=== PATIENT | female | born 1970 | race Hispanic/Latino ===

== ENCOUNTER 2017-05-23 17:26 | Emergency (ER) | payer MEDICAID ==
[2017-05-23 17:28] VITALS: BMI 26.4
[2017-05-23 18:07] VITALS: PULSE 93; RESP 16; TEMP 98.1; O2SAT 96
[2017-05-23 19:13] VITALS: BP 125/78
--- NOTE | 2017-05-23 19:27 | ED PDOC ---
Arrival/HPI - General Chief Complaint: Breast Problem Time Seen by Provider: 05/23/17 18:31 Historian: Patient - History of Present Illness Narrative History of Present Illness (Text): 05/23/17 19:23 Patient with past medical history of asthma and COPD, complains of a painful mass of gradually increasing size of the right breast, palpable under the nipple. Otherwise: (-) foreign body, (-) fever, (-) chills, (-) recent antibiotic use. Patient also denies redness, swelling, nipple discharge, skin discolorations of the breast, chest pain, shortness of breath. patient states that she had an abscess to the right breast last year, she was admitted to this hospital, received IV antibiotics and her symptoms resolved. JOVITA Miramontes Past Medical History - Provider Review Nursing Documentation Reviewed: Yes - Infectious Disease Hx of Infectious Diseases: None - Tetanus Immunization Tetanus Immunization: Up to Date - Past Medical History Past Medical History: No Previous - Cardiac Hx Cardiac Disorders: No Hx Hypertension: No - Pulmonary Hx Respiratory Disorders: No Hx Tuberculosis: No - Neurological Hx Neurological Disorder: No HX Cerebrovascular Accident: No Hx Seizures: No - HEENT Hx HEENT Disorder: No Hx Blind: No Hx Cataracts: No Hx Deafness: No Hx Difficulty Chewing: No Hx Epistaxis: No Hx Glaucoma: No Hx Macular Degeneration: No - Renal Hx Renal Disorder: No Hx Dialysis: No Hx Kidney Stones: No Hx Neurogenic Bladder: No Hx Pyelonephritis: No Hx Renal Cancer: No Hx Renal Failure: No - Endocrine/Metabolic Hx Endocrine Disorders: No Hx Adrenal Cancer: No Hx Diabetes Insipidus: No Hx Diabetes Mellitus Type 1: No Hx Diabetes Mellitus Type 2: No Hx Hyperthyroidism: No Hx Hypothyroidism: No Hx Systemic Lupus Erythematosus: No - Hematological/Oncological Hx Blood Disorders: No Hx Cancer: No - Integumentary Hx Dermatological Disorder: No Hx Basal Cell Carcinoma: No Hx Eczema: No Hx Melanoma: No Hx Psoriasis: No Hx Squamous Cell Carcinoma: No - Musculoskeletal/Rheumatological Hx Musculoskeletal Disorders: Yes Hx Arthritis: No Hx Back Pain: No Hx Degenerative Joint Disease: No Hx Falls: No Hx Fractures: No Hx Gout: No Hx Herniated Disk: Yes Hx Myasthenia Gravis: No Hx Osteoarthritis: No Hx Osteomyelitis: No Hx Osteoporosis: No Hx Rhabdomyolysis: No Hx Spinal Stenosis: No Hx Unsteady Gait: No - Gastrointestinal Hx Gastrointestinal Disorders: No Hx Colostomy: No Hx Crohn's Disease: No Hx Diverticulitis: No Hx Gall Bladder Disease: No Hx Gastroesophageal Reflux: No Hx Ileostomy: No Hx Liver Failure: No Hx Pancreatitis: No HX Swallowing Problems: No - Genitourinary/Gynecological Hx Sexually Transmitted Diseases: No - Psychiatric Hx Psychophysiologic Disorder: Yes Hx Anxiety: Yes Hx Bipolar Disorder: Yes Hx Depression: Yes Hx Physical Abuse: No Hx Substance Use: No - Past Surgical History Past Surgical History: No Previous - Surgical History Hx Amputation: No Hx Appendectomy: No Hx Cardiac Catheterization: No Hx Cholecystectomy: No Hx Coronary Stent: No Hx Gastric Bypass Surgery: No Hx Hysterectomy: No Hx Joint Replacement: No Hx Kidney Transplant: No Hx Liver Transplant: No Hx Mastectomy: No Hx Musculoskeletal Surgery: No Hx Open Heart Surgery: No Hx Orthopedic Surgery: No Hx Splenectomy: No Hx Valve Replacement: No - Anesthesia Hx Anesthesia: No Hx Anesthesia Reactions: No Hx Malignant Hyperthermia: No - Suicidal Assessment Feels Threatened In Home Enviroment: No Family/Social History - Physician Review Nursing Documentation Reviewed: Yes Family/Social History: No Known Family HX Smoking Status: Heavy Smoker > 10 Cigarettes Daily Hx Alcohol Use: No Hx Substance Use: No Hx Substance Use Treatment: Yes (methodone) Allergies/Home Meds Allergies/Adverse Reactions: Allergies No Known Allergies Allergy (Verified 04/22/16 19:51) Home Medications: Home Meds Medication Instructions Recorded Confirmed QUEtiapine [SEROquel] 150 mg PO BID 08/13/14 05/23/17 clonazePAM [Klonopin] 0.5 mg PO BID 08/13/14 05/23/17 oxyCODONE [oxyCODONE Immediate 7.5 mg PO BID 05/23/17 05/23/17 Release Tab] Review of Systems - Review of Systems Constitutional: Normal. absent: Fatigue, Weight Change, Fevers Respiratory: Normal. absent: SOB, Cough, Sputum Cardiovascular: Normal. absent: Chest Pain, Palpitations, Edema Skin: Normal, Abscess. absent: Rash, Pruritis, Skin Lesions Physical Exam Vital Signs Reviewed: Yes Vital Signs Temp Pulse Resp BP Pulse Ox 05/23/17 19:13 125/78 05/23/17 17:55 98.1 F 93 H 16 96 Temperature: Afebrile Blood Pressure: Normal Pulse: Regular Respiratory Rate: Normal Appearance: Positive for: Well-Appearing, Non-Toxic, Comfortable Pain Distress: None Mental Status: Positive for: Alert and Oriented X 3 - Systems Exam Head: Present: Atraumatic, Normocephalic Pupils: Present: PERRL Extroacular Muscles: Present: EOMI Mouth: Present: Moist Mucous Membranes Neck: Present: Normal Range of Motion. No: MIDLINE TENDERNESS, Paraspinal Tenderness Respiratory/Chest: Present: Clear to Auscultation, Good Air Exchange. No: Respiratory Distress, Wheezes, Rhonchi Cardiovascular: Present: Regular Rate and Rhythm, Normal S1, S2. No: Murmurs Abdomen: No: Tenderness, Distention, Rebound, Guarding Breast/Axillary: Present: Other (+tender abscess palpable under the R nipple with noted mild surrounding erythema ro the areola, no nipple d/c, no fluctuance ), Symmetrical. No: Axillary Lymphad, Discoloration, Fluctuance, Nipple Discharge, Swelling Back: Present: Normal Inspection. No: Midline Tenderness, Paraspinal Tenderness Upper Extremity: Present: Normal Inspection, Normal ROM Lower Extremity: Present: Normal Inspection, Normal ROM Neurological: Present: GCS=15, CN II-XII Intact, Motor Func Grossly Intact, Normal Sensory Function Skin: Present: Warm, Dry, Normal Color. No: Rashes Medical Decision Making ED Course and Treatment: 05/23/17 19:29 47 yo F with past medical history of asthma and COPD, complains of a painful mass of gradually increasing size of the right breast, palpable under the nipple. Differential diagnosis : likely breast abscess, consider cellulitis Plan: - Clindamycin 300 mg PO - Toradol 60 mg IM Patient advised of likely diagnosis of breast abscess, advised to take medication as prescribed, instructed to follow up with primary care physician and referral physician provided in 1-2 days without fail. Return to the emergency room at any time for any new or worsening symptoms, especially if increased redness, swelling, fever, and chills develop. Patient states she fully agrees with and understands discharge instructions. States that she agrees with the plan and disposition. Verbalized and repeated discharge instructions and plan. I have given the patient opportunity to ask any additional questions. - Medication Orders Current Medication Orders: Discontinued Medications Clindamycin HCl (Cleocin) 300 mg PO STAT STA PRN Reason: Protocol Stop: 05/23/17 19:06 Ketorolac Tromethamine (Toradol) 60 mg IM STAT STA Stop: 05/23/17 19:05 - PA / TELEPATHIST / Resident Statement / has reviewed & agrees with the documentation as recorded. Disposition/Present on Arrival - Present on Arrival Any Indicators Present on Arrival: No History of DVT/PE: No History of Uncontrolled Diabetes: No Urinary Catheter: No History of Decub. Ulcer: No History Surgical Site Infection Following: None - Disposition Have Diagnosis and Disposition been Completed?: Yes Diagnosis: Breast abscess Disposition: HOME/ ROUTINE Disposition Time: 19:33 Patient Plan: Discharge Patient Problems: Current Active Problems Problem Status Onset Breast abscess Acute Condition: STABLE Discharge Instructions (ExitCare): Abscess (ED) Print Language: FILIPINO Additional Instructions: Thank you for letting us take care of you today. You were treated for right breast abscess. The emergency medical care you received today was directed at your acute symptoms. If you were prescribed any medication, please fill it and take as directed. It may take several days for your symptoms to resolve. Return to the Emergency Department if your symptoms worsen, do not improve, or if you have any other problems. Please contact your doctor in 2 days for re-evaluation and follow up / or call one of the physicians/clinics you have been referred to that are listed on the Patient Visit Information form that is included in your discharge packet. Bring any paperwork you were given at discharge with you along with any medications you are taking to your follow up visit. Our treatment cannot replace ongoing medical care by a primary care provider (PCP) outside of the emergency department. Thank you for allowing the [facility] team to be part of your care today. Prescriptions: Clindamycin [Cleocin] 300 mg PO TID #30 cap Naproxen 500 mg PO BID #30 tab Referrals: Kay Miramontes MD [Primary Care Provider] - Follow up with primary Christie Hood MD [Staff Provider] - Follow up with primary Forms: [employer] (Bengali), WORK NOTE
== END 2017-05-23 19:56 | disposition home or self-care (01) ==
LOC: ED 17:26
DX: N61.1 Abscess of the breast and nipple (principal)
CPT/HCPCS: 96372; 99283; J1885

== ENCOUNTER 2017-09-16 16:07 | Emergency (ER) | payer MEDICAID ==
[2017-09-16 16:09] VITALS: BMI 23.1
[2017-09-16] MEDS ORDERED: Alum-Mag Hydrox-Simethicone Susp (30 mL) PO STA (17:13)
--- NOTE | 2017-09-16 17:17 | ED PDOC ---
Arrival/HPI - General Chief Complaint: Chest Pain Time Seen by Provider: 09/16/17 17:03 - History of Present Illness Narrative History of Present Illness (Text): 09/16/17 17:16 Patient is a 47 year old F presenting with pleuritic L sided chest pain x 1 day. Reports that the pain is also worsened by movement. Denies fever, chills , cough, uri, nausea/vomiting. She denies shortness of breath but reports that it is difficult to take a deep breath secondary to pain. Reports taking oxycodone prior to arrival with some relief. She reports tobacco use. Denies hx of diabetes or htn. Denies cocaine use. PMD: Dr. Banda Past Medical History - Infectious Disease Hx of Infectious Diseases: None - Tetanus Immunization Tetanus Immunization: Up to Date - Past Medical History Past Medical History: No Previous - Cardiac Hx Angina: No Hx Cardiac Arrhythmia: No Hx Circulatory Problems: No Hx Congestive Heart Failure: No Hx Heart Murmur: No Hx Heart Transplant: No Hx Hypertension: No Hx Internal Defibrillator: No Hx Mitral Valve Prolapse: No Hx Pacemaker: No Hx Peripheral Edema: No Hx Peripheral Vascular Disease: No - Pulmonary Hx Respiratory Disorders: No Hx Chronic Obstructive Pulmonary Disease (COPD): Yes - Neurological Hx Neurological Disorder: No - HEENT Hx HEENT Disorder: No - Renal Hx Renal Disorder: No - Endocrine/Metabolic Hx Endocrine Disorders: No - Hematological/Oncological Hx Blood Disorders: No - Integumentary Hx Dermatological Disorder: No Other/Comment: pt claims abcess on rt breast - Musculoskeletal/Rheumatological Hx Musculoskeletal Disorders: No Hx Arthritis: No Hx Back Pain: No Hx Degenerative Joint Disease: No Hx Falls: No Hx Fractures: No Hx Gout: No Hx Herniated Disk: No Hx Myasthenia Gravis: No Hx Osteoarthritis: No Hx Osteomyelitis: No Hx Osteoporosis: No Hx Rhabdomyolysis: No Hx Spinal Stenosis: No Hx Unsteady Gait: No - Gastrointestinal Hx Gastrointestinal Disorders: No - Genitourinary/Gynecological Hx Genitourinary Disorders: No - Psychiatric Hx Bipolar Disorder: Yes Hx Substance Use: No Other/Comment: former drug user - Past Surgical History Past Surgical History: No Previous - Surgical History Hx Amputation: No Hx Appendectomy: No Hx Cardiac Catheterization: No Hx Cholecystectomy: No Hx Coronary Stent: No Hx Gastric Bypass Surgery: No Hx Hysterectomy: No Hx Joint Replacement: No Hx Kidney Transplant: No Hx Liver Transplant: No Hx Mastectomy: No Hx Musculoskeletal Surgery: No Hx Open Heart Surgery: No Hx Orthopedic Surgery: No Hx Splenectomy: No Hx Valve Replacement: No - Anesthesia Hx Anesthesia: No - Suicidal Assessment Feels Threatened In Home Enviroment: No Family/Social History Family/Social History: No Known Family HX Smoking Status: Light Smoker < 10 Cigarettes Daily Hx Alcohol Use: No Hx Substance Use: No Hx Substance Use Treatment: Yes (methodone) Allergies/Home Meds Allergies/Adverse Reactions: Allergies No Known Allergies Allergy (Verified 09/16/17 16:44) Home Medications: Home Meds Medication Instructions Recorded Confirmed QUEtiapine [SEROquel] 150 mg PO BID 08/13/14 09/16/17 clonazePAM [Klonopin] 0.5 mg PO BID 08/13/14 09/16/17 oxyCODONE [oxyCODONE Immediate 7.5 mg PO BID 05/23/17 09/16/17 Release Tab] Albuterol HFA [Ventolin HFA 90 2 puff IH PRN PRN 06/06/17 09/16/17 mcg/actuation (8 g)] Review of Systems - Review of Systems Constitutional: absent: Fatigue, Weight Change Respiratory: absent: SOB, Cough, Sputum, Wheezing Cardiovascular: Chest Pain (pleuritic). absent: Palpitations, Edema, Calf Pain , MORGAN Gastrointestinal: absent: Abdominal Pain, Constipation, Diarrhea, Nausea, Vomiting, Food Intolerance Neurological: absent: Headache, Dizziness, Focal Weakness, Gait Changes, Speech Changes, Facial Droop, Disequilibrium Physical Exam Vital Signs Temp Pulse Resp BP Pulse Ox 09/16/17 16:38 98 F 96 H 18 103/68 97 Temperature: Afebrile Blood Pressure: Normal Pulse: Regular Respiratory Rate: Normal Appearance: Positive for: Well-Appearing, Non-Toxic, Comfortable Pain Distress: None Mental Status: Positive for: Alert and Oriented X 3 - Systems Exam Head: Present: Atraumatic, Normocephalic Pupils: Present: PERRL Extroacular Muscles: Present: EOMI Conjunctiva: Present: Normal Mouth: Present: Moist Mucous Membranes Neck: Present: Normal Range of Motion Respiratory/Chest: Present: Clear to Auscultation, Good Air Exchange. No: Respiratory Distress, Accessory Muscle Use Cardiovascular: Present: Regular Rate and Rhythm, Normal S1, S2. No: Murmurs Abdomen: No: Tenderness, Distention Upper Extremity: Present: Normal Inspection Lower Extremity: Present: Normal Inspection. No: Edema Neurological: Present: GCS=15, CN II-XII Intact Skin: Present: Warm, Dry. No: Rashes Psychiatric: Present: Alert, Oriented x 3 Medical Decision Making ED Course and Treatment: 09/16/17 17:17 EKG shows NSR at 91bpm with normal intervals and no ST changes. Cxray negative. Trop and bnp negative. Patient's only cardiac risk factor is tobacco use. She has normal ekg and pleuritic chest pain for >24 hours. On reevaluation she is sleeping comfortably. Will sign out to Dr. Pastrana to follow-up d-dimer and reevaluate - Lab Interpretations Lab Results: 09/16/17 17:00 09/16/17 17:58 Lab Results 09/16/17 18:01: Urine Color Yellow, Urine Appearance Clear, Urine pH 7.5, Ur Specific [place] 1.010, Urine Protein Negative, Urine Glucose (UA) Negative, Urine Ketones Negative, Urine Blood Trace-intact H, Urine Nitrate Negative, Urine Bilirubin Negative, Urine Urobilinogen 0.2, Ur Leukocyte Esterase Negative , Urine RBC 1 - 3, Urine WBC 0 - 2, Ur Epithelial Cells 0 - 2, Urine Bacteria Small 09/16/17 17:58: Sodium 138, Potassium 4.1, Chloride 100, Carbon Dioxide 33, Anion Gap 8 L, BUN 13, Creatinine 0.8, Est GFR ( Amer) > 60, Est GFR (Non -Af Amer) > 60, Random Glucose 98, Calcium 8.9, Magnesium 2.1, Total Bilirubin 0.5, AST 27, ALT 30, Alkaline Phosphatase 65, Lactate Dehydrogenase 402, Total Creatine Kinase 65, Troponin I < 0.01, NT-Pro-B Natriuret Pep 15.1, Total Protein 7.1, Albumin 4.2, Globulin 3.0, Albumin/Globulin Ratio 1.4 09/16/17 17:00: PT 10.2, INR 0.94, APTT 29.4, D-Dimer, Quantitative Pending 09/16/17 17:00: WBC 7.2, RBC 4.15, Hgb 13.1, Hct 39.3, MCV 94.7, MCH 31.6, MCHC 33.3, RDW 13.3, Plt Count 233, MPV 9.5, Gran % 60.5, Lymph % (Auto) 28.8, [place] % (Auto) 7.6 H, Eos % (Auto) 2.8, Baso % (Auto) 0.3, Gran # 4.36, Lymph # 2.1, [place] # 0.6, Eos # 0.2, Baso # 0.02 - RAD Interpretation Radiology Orders: 09/16/17 17:06 CHEST PORTABLE [RAD] Stat - Medication Orders Current Medication Orders: Discontinued Medications Al Hydrox/Mg Hydrox/Simethicone (Maalox Plus 30 Ml) 30 ml PO STAT STA Stop: 09/16/17 17:14 Last Admin: 09/16/17 17:55 Dose: 30 ml Aspirin (Aspirin) 325 mg PO STAT STA Stop: 09/16/17 17:07 Last Admin: 09/16/17 17:55 Dose: 325 mg Famotidine (Pepcid) 20 mg IVP STAT STA Stop: 09/16/17 17:14 Last Admin: 09/16/17 17:55 Dose: 20 mg IVP Administration Document 09/16/17 17:55 (Rec: 09/16/17 17:55 [id number]) Charges for Administration # of IVP Administrations 1 Disposition/Present on Arrival - Present on Arrival Any Indicators Present on Arrival: No History of DVT/PE: No History of Uncontrolled Diabetes: No Urinary Catheter: No History of Decub. Ulcer: No History Surgical Site Infection Following: None - Disposition Have Diagnosis and Disposition been Completed?: Yes Diagnosis: Pleuritic chest pain Disposition Time: 19:00 Patient Problems: Current Active Problems Problem Status Onset Pleuritic chest pain Acute Condition: GOOD Discharge Instructions (ExitCare): Chest Pain (ED) Referrals: Gideon Aranda [Primary Care Provider] - Follow up with primary Forms: [employer] (Stateless)
[2017-09-16 17:35] LABS: BASO # 0.02 K/mm3 (0.0-2.0); BASO % 0.3 % (0.0-3.0); EOS # 0.2 (0.0-0.7); EOS % 2.8 % (1.5-5.0); GRAN # 4.36 (1.4-6.5); GRAN % 60.5 % (50.0-68.0); HEMATOCRIT 39.3 % (36.0-48.0); LYMPH # 2.1 (1.2-3.4); LYMPH % 28.8 % (22.0-35.0); MEAN CELL VOLUME 94.7 fl (80.0-105.0); MEAN CORPUSCULAR HEMOGLOBIN 31.6 pg (25.0-35.0); MEAN CORPUSCULAR HGB CONC 33.3 g/dl (31.0-37.0); MEAN PLATELET VOLUME 9.5 fl (7.0-11.0); MONO # 0.6 (0.1-0.6); MONO % 7.6 % (1.0-6.0); RED CELL DISTRIBUTION WIDTH 13.3 % (11.5-14.5); WHITE BLOOD COUNT 7.2 10^3/ul (4.5-11.0)
[2017-09-16 18:03] LABS: INR 0.94 (0.93-1.08); PARTIAL THROMBOPLASTIN TIME 29.4 Seconds (25.1-36.5)
[2017-09-16 18:15] LABS: PH,URINE 7.5 (4.7-8.0); URINE BILIRUBIN NEGATIVE (NEGATIVE); URINE BLOOD TRACE-INTACT (NEGATIVE); URINE GLUCOSE (UA) NEGATIVE (NEGATIVE); URINE KETONE NEGATIVE (NEGATIVE); URINE LEUKOCYTE ESTERASE NEGATIVE Leu/uL (NEGATIVE); URINE PROTEIN NEGATIVE mg/dL (<30 mg/dL); URINE UROBILINOGEN 0.2 E.U./dL (<1 E.U./dL)
[2017-09-16 18:26] LABS: URINE APPEARANCE CLEAR (CLEAR); URINE COLOR YELLOW (YELLOW)
[2017-09-16 18:36] LABS: ALB/GLOB RATIO 1.4 (1.1-1.8); ALKALINE PHOSPHATASE 65 U/L (38-126); ALT/SGPT 30 U/L (7-56); AST/SGOT 27 U/L (14-36); BILIRUBIN,TOTAL 0.5 mg/dL (0.2-1.3); BLOOD UREA NITROGEN 13 mg/dL (7-21); CALCIUM 8.9 mg/dL (8.4-10.5); CARBON DIOXIDE 33 mmol/L (21-33); CHLORIDE 100 mmol/L (98-107); GFR AFRICAN-AMERICAN > 60; GLUCOSE,RANDOM 98 mg/dL (70-110); MAGNESIUM 2.1 mg/dL (1.7-2.2); POTASSIUM 4.1 mmol/L (3.6-5.0); SODIUM 138 mmol/L (132-148); TOTAL PROTEIN 7.1 g/dL (5.8-8.3)
[2017-09-16 18:47] LABS: TROPONIN I < 0.01 ng/mL
[2017-09-16 18:52] LABS: URINE BACTERIA SMALL (NEG); URINE EPITHELIAL CELLS 0 - 2 /hpf (0-5); URINE WBC 0 - 2 /hpf (0-6)
--- NOTE | 2017-09-16 19:28 | ED PDOC ---
Physical Exam Vital Signs Temp Pulse Resp BP Pulse Ox 09/16/17 20:00 85 17 107/70 100 09/16/17 18:09 65 18 118/67 99 09/16/17 16:38 98 F 96 H 18 103/68 97 Temperature: Afebrile Blood Pressure: Normal Pulse: Regular Respiratory Rate: Normal Appearance: Positive for: Well-Appearing, Non-Toxic, Comfortable Pain Distress: None Mental Status: Positive for: Alert and Oriented X 3 - Systems Exam Respiratory/Chest: Present: Clear to Auscultation, Good Air Exchange, Tender to Palpation. No: Respiratory Distress, Accessory Muscle Use Cardiovascular: Present: Regular Rate and Rhythm, Normal S1, S2. No: Murmurs Abdomen: Present: Normal Bowel Sounds. No: Tenderness, Distention, Peritoneal Signs Medical Decision Making ED Course and Treatment: 09/16/17 19:03 Patient transferred to [place] by Dr. Richardson.Case d/w her in full. Currently awaitng D-Dimer findings prior to final disposition. 09/16/17 21:10 Pt. reexamined complaining of pain to chest/upper abdomen.Hurts when palpating her chest and upper abdomen.D-Dimer result was negative.NSAID ordered.CT chest/ abdomen ordered 09/16/17 22:49 CT results noted.Pt. feeling better.Will d/c with rx..To follow up with PMD. - Lab Interpretations Lab Results: 09/16/17 17:00 09/16/17 17:58 Lab Results 09/16/17 19:14: D-Dimer, Quantitative 201 09/16/17 18:01: Urine Color Yellow, Urine Appearance Clear, Urine pH 7.5, Ur Specific [place] 1.010, Urine Protein Negative, Urine Glucose (UA) Negative, Urine Ketones Negative, Urine Blood Trace-intact H, Urine Nitrate Negative, Urine Bilirubin Negative, Urine Urobilinogen 0.2, Ur Leukocyte Esterase Negative , Urine RBC 1 - 3, Urine WBC 0 - 2, Ur Epithelial Cells 0 - 2, Urine Bacteria Small 09/16/17 17:58: Sodium 138, Potassium 4.1, Chloride 100, Carbon Dioxide 33, Anion Gap 8 L, BUN 13, Creatinine 0.8, Est GFR ( Amer) > 60, Est GFR (Non -Af Amer) > 60, Random Glucose 98, Calcium 8.9, Magnesium 2.1, Total Bilirubin 0.5, AST 27, ALT 30, Alkaline Phosphatase 65, Lactate Dehydrogenase 402, Total Creatine Kinase 65, Troponin I < 0.01, NT-Pro-B Natriuret Pep 15.1, Total Protein 7.1, Albumin 4.2, Globulin 3.0, Albumin/Globulin Ratio 1.4 09/16/17 17:00: PT 10.2, INR 0.94, APTT 29.4, D-Dimer, Quantitative 09/16/17 17:00: WBC 7.2, RBC 4.15, Hgb 13.1, Hct 39.3, MCV 94.7, MCH 31.6, MCHC 33.3, RDW 13.3, Plt Count 233, MPV 9.5, Gran % 60.5, Lymph % (Auto) 28.8, [place] % (Auto) 7.6 H, Eos % (Auto) 2.8, Baso % (Auto) 0.3, Gran # 4.36, Lymph # 2.1, [place] # 0.6, Eos # 0.2, Baso # 0.02 - RAD Interpretation Radiology Orders: 09/16/17 17:06 CHEST PORTABLE [RAD] Stat 09/16/17 21:19 CHEST,ABD,PEL W/IV CONT ONLY [CT] Stat - Medication Orders Current Medication Orders: Discontinued Medications Al Hydrox/Mg Hydrox/Simethicone (Maalox Plus 30 Ml) 30 ml PO STAT STA Stop: 09/16/17 17:14 Last Admin: 09/16/17 17:55 Dose: 30 ml Aspirin (Aspirin) 325 mg PO STAT STA Stop: 09/16/17 17:07 Last Admin: 09/16/17 17:55 Dose: 325 mg Famotidine (Pepcid) 20 mg IVP STAT STA Stop: 09/16/17 17:14 Last Admin: 09/16/17 17:55 Dose: 20 mg IVP Administration Document 09/16/17 17:55 (Rec: 09/16/17 17:55 [id number]) Charges for Administration # of IVP Administrations 1 Ketorolac Tromethamine (Toradol) 30 mg IVP ONCE ONE Stop: 09/16/17 21:22 Last Admin: 09/16/17 21:30 Dose: 30 mg MAR Pain Assessment Document 09/16/17 21:30 AB (Rec: 09/16/17 21:30 [id number] Pain Reassessment Is this a pain reassessment? Yes Sleep Is patient sleeping during reassessment? No Presence of Pain Presence of Pain Yes Pain Scale Used Pain Scale Used Numeric Location Pain Location Body Site Chest Description Description Constant Pain Behavior Guarding Aggravating Factors ADL's Alleviating Factors/Management Medication Techniques Alleviating Factors Medication IVP Administration Document 09/16/17 21:30 (Rec: 09/16/17 21:30 [id number]) Charges for Administration # of IVP Administrations 1 Disposition/Present on Arrival - Present on Arrival Any Indicators Present on Arrival: No History of DVT/PE: No History of Uncontrolled Diabetes: No Urinary Catheter: No History of Decub. Ulcer: No History Surgical Site Infection Following: None - Disposition Have Diagnosis and Disposition been Completed?: Yes Diagnosis: Pleuritic chest pain, Musculoskeletal pain Disposition: HOME/ ROUTINE Disposition Time: 22:53 Patient Plan: Discharge Condition: GOOD Discharge Instructions (ExitCare): Chest Pain (ED) Additional Instructions: Rest/no strenuous physical activity/take meds as prescribed/follow up with your doctor this week Prescriptions: Naproxen [Naprosyn] 500 mg PO BID PRN #14 tab PRN Reason: Pain Referrals: Gideon Aranda [Primary Care Provider] - Follow up with primary Forms: [employer] (U[place]ayan)
[2017-09-16 21:02] VITALS: O2SAT 100
[2017-09-16] MEDS ORDERED: Iohexol 350 MG/100 ML VIAL ONE (21:26)
--- NOTE | 2017-09-16 22:36 | CT ---
EXAM: CT Abdomen and Pelvis With Intravenous Contrast CLINICAL HISTORY: 47 years old, female; Pain; Abdominal pain; Localized; Upper; Chest pressure; Additional info: Chest/upper abdominal pain TECHNIQUE: Axial computed tomography images of the abdomen and pelvis with intravenous contrast. All CT scans at this facility use one or more dose reduction techniques, viz.: automated exposure control; ma/kV adjustment per patient size (including targeted exams where dose is matched to indication; i.e. head); or iterative reconstruction technique. Coronal and sagittal reformatted images were created and reviewed. CONTRAST: 100 mL of OMNI administered intravenously. COMPARISON: No relevant prior studies available. FINDINGS: ABDOMEN: Liver: No acute findings. Gallbladder and bile ducts: The gallbladder is decompressed. No calcified stones. No significant intra- or extrahepatic biliary ductal dilation. Pancreas: Enhances homogeneously. No ductal dilation. No discrete mass. Spleen: No acute findings. Adrenals: No acute findings. Kidneys and ureters: No acute findings. No hydronephrosis or renal calculi. No discrete solid mass. PELVIS: Bladder: No acute findings. Reproductive: No acute findings. Appendix: The appendix is of normal caliber (series 2, image 173) . ABDOMEN and PELVIS: Stomach and bowel: No obstruction. No mucosal thickening. A fat (and likely omentum) containing umbilical hernia is detected. Peritoneum: No significant fluid collection. No free air. Lymph nodes: No pathologically enlarged lymph nodes. Vasculature: Unremarkable (no aneurysmal dilatation or dissection). Bones: No acute fracture. IMPRESSION: Fat and likely omentum containing umbilical hernia. EXAM: CT Chest With Intravenous Contrast CLINICAL HISTORY: 47 years old, female; Pain; Abdominal pain; Localized; Upper; Chest pressure; Additional info: Chest/upper abdominal pain TECHNIQUE: Axial computed tomography images of the chest with intravenous contrast. All CT scans at this facility use one or more dose reduction techniques, viz.: automated exposure control; ma/kV adjustment per patient size (including targeted exams where dose is matched to indication; i.e. head); or iterative reconstruction technique. Coronal and sagittal reformatted images were created and reviewed. CONTRAST: 100 mL of OMNI administered intravenously. COMPARISON: No relevant prior studies available. FINDINGS: Lungs: No mass. No consolidation. Right basilar atelectasis. Pleural spaces: No significant effusion. No pneumothorax. Heart: No cardiomegaly. No significant pericardial effusion. Vasculature: No aortic aneurysm. No dissection. Lymph nodes: No enlarged lymph nodes. Bones: No acute fracture. IMPRESSION: Right basilar atelectasis.
[2017-09-16 23:16] VITALS: BP 110/80; PULSE 70; RESP 18; TEMP 98.7
--- NOTE | 2017-09-17 09:00 | RAD ---
HISTORY: chest pain COMPARISON: 01/18/2015 FINDINGS: LUNGS: No active pulmonary disease. PLEURA: No significant pleural effusion identified, no pneumothorax apparent. CARDIOVASCULAR: Normal. OSSEOUS STRUCTURES: No significant abnormalities. VISUALIZED UPPER ABDOMEN: Normal. OTHER FINDINGS: None. IMPRESSION: No active disease.
--- NOTE | 2017-09-17 20:06 | CARD ---
APPROVED REPORT EKG Measurement Heart [id number] <Conclusion> Normal sinus rhythm Normal ECG
== END 2017-09-16 23:16 | disposition home or self-care (01) ==
LOC: ED 16:07
DX: R07.81 Pleurodynia (principal); M79.1 Myalgia; F17.210 Nicotine dependence, cigarettes, uncomplicated
CPT/HCPCS: 71010; 71260; 74177; 80053; 81001; 82550; 83615; 83735; 83880; 84484; 85025; 85378; 85610; 85730; 93005; 96374; 96375; 99285; J1885; Q9967

== ENCOUNTER 2017-12-25 12:18 | Emergency (ER) | payer MEDICAID ==
[2017-12-25 12:26] VITALS: BMI 24.0
--- NOTE | 2017-12-25 12:32 | ED PDOC ---
Arrival/HPI - General Chief Complaint: Flu-like Symptoms Time Seen by Provider: 12/25/17 12:22 Historian: Patient - History of Present Illness Narrative History of Present Illness (Text): 12/25/17 12:29 A 47 year old female, whose past medical history includes bipolar disorder, presents to the emergency department complaining of a sore throat since yesterday. Patient reports body aches, nasal congestion, headache and non- bilious non-bloody vomiting. Patient is able to tolerate PO intake. Patient notes urinary frequency but denies any fever, chills, abdominal pain, dysuria, chest pain, shortness of breath, cough or any other complaints. PMD: Dr. Miramontes Time/Duration: Other (yesterday) Symptom Course: Unchanged Quality: Other Context: Home Past Medical History - Provider Review Nursing Documentation Reviewed: Yes - Infectious Disease Hx of Infectious Diseases: None - Tetanus Immunization Tetanus Immunization: Up to Date - Past Medical History Past Medical History: No Previous - Cardiac Hx Angina: No Hx Cardiac Arrhythmia: No Hx Circulatory Problems: No Hx Congestive Heart Failure: No Hx Heart Murmur: No Hx Heart Transplant: No Hx Hypertension: No Hx Internal Defibrillator: No Hx Mitral Valve Prolapse: No Hx Pacemaker: No Hx Peripheral Edema: No Hx Peripheral Vascular Disease: No - Pulmonary Hx Respiratory Disorders: No Hx Chronic Obstructive Pulmonary Disease (COPD): Yes - Neurological Hx Neurological Disorder: No - HEENT Hx HEENT Disorder: No - Renal Hx Renal Disorder: No - Endocrine/Metabolic Hx Endocrine Disorders: No - Hematological/Oncological Hx Blood Disorders: No - Integumentary Hx Dermatological Disorder: No Other/Comment: pt claims abcess on rt breast - Musculoskeletal/Rheumatological Hx Musculoskeletal Disorders: No Hx Arthritis: No Hx Back Pain: No Hx Degenerative Joint Disease: No Hx Falls: No Hx Fractures: No Hx Gout: No Hx Herniated Disk: No Hx Myasthenia Gravis: No Hx Osteoarthritis: No Hx Osteomyelitis: No Hx Osteoporosis: No Hx Rhabdomyolysis: No Hx Spinal Stenosis: No Hx Unsteady Gait: No - Gastrointestinal Hx Gastrointestinal Disorders: No - Genitourinary/Gynecological Hx Genitourinary Disorders: No - Psychiatric Hx Bipolar Disorder: Yes Hx Substance Use: No Other/Comment: former drug user - Past Surgical History Past Surgical History: No Previous - Surgical History Hx Amputation: No Hx Appendectomy: No Hx Cardiac Catheterization: No Hx Cholecystectomy: No Hx Coronary Stent: No Hx Gastric Bypass Surgery: No Hx Hysterectomy: No Hx Joint Replacement: No Hx Kidney Transplant: No Hx Liver Transplant: No Hx Mastectomy: No Hx Musculoskeletal Surgery: No Hx Open Heart Surgery: No Hx Orthopedic Surgery: No Hx Splenectomy: No Hx Valve Replacement: No - Anesthesia Hx Anesthesia: No - Suicidal Assessment Feels Threatened In Home Enviroment: No Family/Social History - Physician Review Nursing Documentation Reviewed: Yes Family/Social History: No Known Family HX Smoking Status: Light Smoker < 10 Cigarettes Daily Hx Alcohol Use: No Hx Substance Use: No Hx Substance Use Treatment: Yes (methodone) Allergies/Home Meds Allergies/Adverse Reactions: Allergies No Known Allergies Allergy (Verified 12/25/17 12:28) Home Medications: Home Meds Medication Instructions Recorded Confirmed QUEtiapine [SEROquel] 150 mg PO BID 08/13/14 12/25/17 clonazePAM [Klonopin] 0.5 mg PO BID 08/13/14 12/25/17 oxyCODONE [oxyCODONE Immediate 7.5 mg PO BID 05/23/17 12/25/17 Release Tab] Albuterol HFA [Ventolin HFA 90 2 puff IH PRN PRN 06/06/17 12/25/17 mcg/actuation (8 g)] Review of Systems - Physician Review All systems were reviewed & negative as marked: Yes - Review of Systems Constitutional: absent: Fevers, Night Sweats ENT: Sore Throat, Sinus Congestion Respiratory: absent: SOB, Cough Cardiovascular: absent: Chest Pain Gastrointestinal: Vomiting. absent: Abdominal Pain Genitourinary Female: Frequency. absent: Dysuria Musculoskeletal: Myalgias Neurological: Headache Physical Exam Vital Signs Reviewed: Yes Vital Signs Temp Pulse Resp BP Pulse Ox 12/25/17 16:07 86 17 112/75 98 12/25/17 15:18 98.2 F 89 17 109/65 97 12/25/17 13:40 100 F H 12/25/17 13:39 106 H 17 115/65 100 12/25/17 12:40 100.1 F H 12/25/17 12:19 100.1 F H 121 H 18 140/71 100 Temperature: Febrile Blood Pressure: Normal Pulse: Tachycardic Respiratory Rate: Normal Appearance: Positive for: Well-Appearing, Non-Toxic, Comfortable Pain Distress: None Mental Status: Positive for: Alert and Oriented X 3 - Systems Exam Head: Present: Atraumatic, Normocephalic Pupils: Present: PERRL Extroacular Muscles: Present: EOMI Conjunctiva: Present: Normal Mouth: Present: Dry Pharnyx: Present: ERYTHEMA, EXUDATE (bilaterally), TONSILS ENLARGED. No: Uvular Deviation Nose (Internal): Present: Other (Nasal congestion) Neck: Present: Normal Range of Motion, Lymphadenopathy Respiratory/Chest: Present: Clear to Auscultation, Good Air Exchange. No: Respiratory Distress, Accessory Muscle Use Cardiovascular: Present: Regular Rate and Rhythm, Normal S1, S2. No: Murmurs Abdomen: Present: Normal Bowel Sounds. No: Tenderness, Distention, Peritoneal Signs Back: Present: Normal Inspection Upper Extremity: Present: Normal Inspection. No: Cyanosis, Edema Lower Extremity: Present: Normal Inspection. No: Edema Neurological: Present: GCS=15, CN II-XII Intact, Speech Normal Skin: Present: Warm, Dry, Normal Color. No: Rashes Psychiatric: Present: Alert, Oriented x 3, Normal Insight, Normal Concentration Medical Decision Making ED Course and Treatment: 12/25/17 12:28 Impression: A 47 year old female with sore throat, body aches, congestion and headache Differential Diagnosis included but are not limited to: Pharyngitis r/o Sepsis; Dehydration Plan: -- Chest xray -- EKG -- Labs -- Blood and Urine culture -- Urinalysis -- Tylenol, Decadeon, Toradol and Lactated ringer -- Reassess and disposition Progress Notes: EKG shows sinus tachycardia at [address]-segment elevations. Interpreted by me. Report Date : 12/25/2017 13:43:14 Procedure: Chest xray Dictator : Maxime Osei MD IMPRESSION: No active disease. 12/25/17 14:02 Patient resting. Her general bodyaches have resolved. HR improving. 12/25/17 16:10 Patient AAOx3. She feels much better. Her vital signs have improved. Her aches have resolved. She is able to tolerate PO fluids. She has completed her hydration. She has some blood in her UA and has some urinary symptoms. Will treat with Macrobid. She was advised to return to the ED if symptoms worsen or any other concern. - Critical Care Critical Care Minutes: 30 minutes - Lab Interpretations Lab Results: 12/25/17 12:28 12/25/17 13:50 Lab Results 12/25/17 14:35: Influenza Typ A,B (EIA) Negative for flu a/b 12/25/17 13:50: Sodium 134, Chloride 101, Potassium 3.8, Carbon Dioxide 26, Anion Gap 11, BUN 15, Creatinine 0.7, Est GFR ( Amer) > 60, Est GFR (Non- Af Amer) > 60, Random Glucose 147 H, Calcium 8.8, Phosphorus 3.4, Magnesium 1.7 , Total Bilirubin 0.4, AST 22, ALT 29, Alkaline Phosphatase 72, Troponin I < 0.01, Total Protein 6.9, Albumin 3.9, Globulin 3.1, Albumin/Globulin Ratio 1.3 12/25/17 13:20: Urine Color Yellow, Urine Appearance Sl cloudy, Urine pH 8.0, Ur Specific [place] 1.020, Urine Protein Trace H, Urine Glucose (UA) Negative, Urine Ketones 15 H, Urine Blood Moderate H, Urine Nitrate Negative, Urine Bilirubin Negative, Urine Urobilinogen 0.2, Ur Leukocyte Esterase Negative, Urine RBC Tntc, Urine WBC 0 - 2, Ur Epithelial Cells 10 - 12, Urine Bacteria Few 12/25/17 12:28: pO2 20 L, VBG pH 7.35, VBG pCO2 55.0, VBG HCO3 30.4 H, VBG Total CO2 32.1 H, VBG O2 Sat (Calc) 45.9, VBG Base Excess 3.4 H, VBG Potassium 4.7, Sodium 136.0, Chloride 102.0, Glucose 155 H, Lactate 1.0, FiO2 21.0, Venous Blood Potassium 4.7 12/25/17 12:28: PT 12.8 H, INR 1.11 H, APTT 31.0 12/25/17 12:28: WBC 16.9 H D, RBC 4.41, Hgb 14.2, Hct 41.0, MCV 93.0, MCH 32.2, MCHC 34.6, RDW 13.8, Plt Count 227, MPV 10.6, Gran % 90.4 H, Lymph % (Auto) 5.0 L, [place] % (Auto) 4.5, Eos % (Auto) 0.0 L, Baso % (Auto) 0.1, Gran # 15.27 H, Lymph # (Auto) 0.9 L, [place] # (Auto) 0.8 H, Eos # (Auto) 0.0, Baso # (Auto) 0.02 , Neutrophils % (Manual) 90 H, Lymphocytes % (Manual) 6 L, Monocytes % (Manual) 4 I have reviewed the lab results: Yes - RAD Interpretation Radiology Orders: 12/25/17 12:28 CHEST PORTABLE [RAD] Stat - Medication Orders Current Medication Orders: Discontinued Medications Acetaminophen (Tylenol 325mg Tab) 650 mg PO STAT STA Stop: 12/25/17 12:31 Last Admin: 12/25/17 12:40 Dose: 650 mg MAR Pain/Vitals Document 12/25/17 12:40 SF (Rec: 12/25/17 12:40 SF [id number]) Pain Reassessment Is This A Pain ReAssessment? Yes Sleep Is patient sleeping during reassessment? No Presence of Pain Presence of Pain Yes Pain Scale Used Pain Scale Used Numeric Vitals Temperature (97.6 F-99.6 F) 100.1 F Temperature Source Oral Dexamethasone (Decadron Inj) 10 mg IVP STAT STA Stop: 12/25/17 12:51 Last Admin: 12/25/17 12:56 Dose: 10 mg IVP Administration Document 12/25/17 12:56 SF (Rec: 12/25/17 12:57 SF [id number]) Charges for Administration # of IVP Administrations 1 Lactated Ringer's 1,910 ml/ IV (SUPPLIES) 1,910 mls @ 3,810.18 mls/hr IV ONCE ONE PRN Reason: 60 ML/KG/HR Stop: 12/25/17 12:29 Last Admin: 12/25/17 12:41 Dose: 3,810.18 mls/hr eMAR Start Stop Document 12/25/17 12:41 SF (Rec: 12/25/17 12:41 SF [id number]) Intravenous Solution Start Date 12/25/17 Start Time 12:41 End Date 12/25/17 End time 13:11 Total Infusion Time 30 Ketorolac Tromethamine (Toradol) 30 mg IVP STAT STA Stop: 12/25/17 12:31 Last Admin: 12/25/17 12:40 Dose: 30 mg MAR Pain Assessment Document 12/25/17 12:40 SF (Rec: 12/25/17 12:41 SF [id number]) Pain Reassessment Is this a pain reassessment? Yes Sleep Is patient sleeping during reassessment? No Presence of Pain Presence of Pain Yes Pain Scale Used Pain Scale Used Numeric Location Pain Location Body Site Generalized IVP Administration Document 12/25/17 12:40 SF (Rec: 12/25/17 12:41 SF [id number]) Charges for Administration # of IVP Administrations 1 Nitrofurantoin Macrocrystals (Macrobid) 100 mg PO STAT STA PRN Reason: Protocol Stop: 12/25/17 16:06 Penicillin G Benzathine (Bicillin L-A Inj) 1,200,000 units IM STAT STA PRN Reason: Protocol Stop: 12/25/17 13:11 Last Admin: 12/25/17 14:50 Dose: 1,200,000 units IM Administration Charges Document 12/25/17 14:50 SF (Rec: 12/25/17 14:50 SF [id number]) Injection Site MAR Injection Site Right Gluteus Medius Charges for Administration # of IM Administrations 1 - Scribe Statement The provider has reviewed the documentation as recorded by the Lucia Juárez Provider Scribe Attestation: All medical record entries made by the Scribe were at my direction and personally dictated by me. I have reviewed the chart and agree that the record accurately reflects my personal performance of the history, physical exam, medical decision making, and the department course for this patient. I have also personally directed, reviewed, and agree with the discharge instructions and disposition. Disposition/Present on Arrival - Present on Arrival Any Indicators Present on Arrival: No History of DVT/PE: No History of Uncontrolled Diabetes: No Urinary Catheter: No History of Decub. Ulcer: No History Surgical Site Infection Following: None - Disposition Have Diagnosis and Disposition been Completed?: Yes Diagnosis: Bacterial pharyngitis, UTI (urinary tract infection), Dehydration Disposition: HOME/ ROUTINE Disposition Time: 16:10 Patient Plan: Discharge Condition: IMPROVED Discharge Instructions (ExitCare): Urinary Tract Infections in Adults, Sore Throat in Adults, Dehydration, Adult (DC) Additional Instructions: Ms Guerrero, thank you for letting us take care of you today. Your provider was Dr. Jaramillo. You were treated for Pharyngitis, UTI, Dehydration. The emergency medical care you received today was directed at your acute symptoms. If you were prescribed any medication, please fill it and take as directed. It may take several days for your symptoms to resolve. Return to the Emergency Department if your symptoms worsen, do not improve, or if you have any other problems. Please contact your doctor or call one of the physicians/clinics you have been referred to that are listed on the Patient Visit Information form that is included in your discharge packet. Bring any paperwork you were given at discharge with you along with any medications you are taking to your follow up visit. Our treatment cannot replace ongoing medical care by a primary care provider (PCP) outside of the emergency department. Thank you for allowing the [facility] team to be part of your care today. If you had an X-Ray or CT scan: A Radiologist will review the ED reading if any change in treatment is needed we will contact you. If you had a blood, urine, or wound culture: It will take several days for the results, if any change in treatment is needed we will contact you. If you had an STI test: It will take 48 hours for the results. Please call after 1 week if you have not heard back. Prescriptions: Nitrofurantoin Macrocrystals [Macrobid] 100 mg PO BID #10 cap Referrals: Kay Miramontes MD [Primary Care Provider] - Follow up with primary Forms: Monitor[employer] (Turkish), WORK NOTE
[2017-12-25 12:44] LABS: BASO # 0.02 K/mm3 (0.0-2.0); BASO % 0.1 % (0.0-3.0); GRAN # 15.27 (1.4-6.5); GRAN % 90.4 % (50.0-68.0); HEMOGLOBIN 14.2 g/dL (12.0-16.0); LYMPH # 0.9 (1.2-3.4); MEAN CORPUSCULAR HEMOGLOBIN 32.2 pg (25.0-35.0); MEAN CORPUSCULAR HGB CONC 34.6 g/dl (31.0-37.0); MEAN PLATELET VOLUME 10.6 fl (7.0-11.0); MONO # 0.8 (0.1-0.6); MONO % 4.5 % (1.0-6.0); PLATELET COUNT 227 10^3/uL (120.0-450.0); RBC 4.41 10^6/uL (3.5-6.1); RED CELL DISTRIBUTION WIDTH 13.8 % (11.5-14.5); WHITE BLOOD COUNT 16.9 10^3/ul (4.5-11.0)
[2017-12-25 12:47] LABS: VENOUS BLOOD GAS BASE EXCESS 3.4 mmol/L (0.0-2.0); VENOUS BLOOD GAS PO2 20 mm/Hg (30-55); VENOUS BLOOD PH 7.35 (7.32-7.43)
[2017-12-25 13:04] LABS: INR 1.11 (0.93-1.08); PROTHROMBIN TIME 12.8 SECONDS (9.4-12.5)
[2017-12-25] MEDS ORDERED: Penicillin G Benzathine 1.2 Mill Unit/2 ml Syr IM STA (13:10)
[2017-12-25 13:32] LABS: LYMPHOCYTE 6 % (22.0-35.0); MONOCYTE 4 % (1.0-6.0); NEUTROPHIL 90 % (50.0-70.0)
[2017-12-25 13:40] VITALS: RESP 17
--- NOTE | 2017-12-25 13:44 | RAD ---
HISTORY: Sepsis Patient COMPARISON: 09/16/2017 FINDINGS: LUNGS: No active pulmonary disease. PLEURA: No significant pleural effusion identified, no pneumothorax apparent. CARDIOVASCULAR: Normal. OSSEOUS STRUCTURES: No significant abnormalities. VISUALIZED UPPER ABDOMEN: Normal. OTHER FINDINGS: None. IMPRESSION: No active disease.
[2017-12-25 13:47] LABS: URINE APPEARANCE SL CLOUDY (CLEAR); URINE BILIRUBIN NEGATIVE (NEGATIVE); URINE BLOOD MODERATE (NEGATIVE); URINE COLOR YELLOW (YELLOW); URINE GLUCOSE (UA) NEGATIVE (NEGATIVE); URINE LEUKOCYTE ESTERASE NEGATIVE Leu/uL (NEGATIVE); URINE PROTEIN TRACE mg/dL (<30 mg/dL); URINE UROBILINOGEN 0.2 E.U./dL (<1 E.U./dL)
[2017-12-25 14:08] LABS: ALB/GLOB RATIO 1.3 (1.1-1.8); ALBUMIN 3.9 g/dL (3.0-4.8); ALT/SGPT 29 U/L (7-56); AST/SGOT 22 U/L (14-36); BLOOD UREA NITROGEN 15 mg/dL (7-21); CALCIUM 8.8 mg/dL (8.4-10.5); GFR AFRICAN-AMERICAN > 60; GFR NON-AFRICAN AMERICAN > 60
[2017-12-25 14:14] LABS: URINE BACTERIA FEW (NEG); URINE RBC TNTC /hpf (0-2); URINE WBC 0 - 2 /hpf (0-6)
[2017-12-25 14:19] LABS: TROPONIN I < 0.01 ng/mL
[2017-12-25 15:18] VITALS: TEMP 98.2
[2017-12-25 16:38] VITALS: BP 112/75; PULSE 86; O2SAT 98
--- NOTE | 2017-12-25 17:04 | CARD ---
APPROVED REPORT EKG Measurement Heart [id number] <Conclusion> Sinus Tachycardia Abnormal ECG
== END 2017-12-25 16:07 | disposition home or self-care (01) ==
LOC: ED 12:18
DX: N39.0 Urinary tract infection, site not specified (principal); E86.0 Dehydration; J02.9 Acute pharyngitis, unspecified; F17.210 Nicotine dependence, cigarettes, uncomplicated
CPT/HCPCS: 71045; 80053; 81001; 82803; 83735; 84100; 84145; 84484; 85025; 85610; 85730; 87040; 87086; 87804; 93005; 96372; 96374; 96375; 99285; J0561; J1100; J1885; J7120